=== PATIENT | male | born 1975 | race Caucasian/White ===

== ENCOUNTER → 2018-11-02 | Outpatient (CLI) | payer OTHER ==
--- NOTE | 2018-11-03 19:52 | MR ---
EXAMINATION TYPE: MR shoulder LT wo con DATE OF EXAM: 11/02/2018 COMPARISON: None HISTORY: Lt shoulder pain after working out TECHNIQUE: Multiplanar, multisequence imaging of the shoulder is performed without contrast. FINDINGS: The supraspinatus tendon appears intact. The biceps tendon appears intact. The subscapularis tendon i s intact. The glenoid viktoria appear normal. I see no fracture nor dislocation. There is minor spurring at the AC joint and minimal subacromial impingement. I see no focal bone destruction. There is a sma ll shoulder joint effusion.. IMPRESSION: No evidence of rotator cuff tear. Small shoulder joint effusion suggestive of mild synovitis. Minimal subacromial impingement.
== END | disposition home or self-care (01) ==
LOC: RADMRIMAIN 18:47
PROVIDERS: ATTEND Family Medicine
DX: M25.412 Effusion, left shoulder (principal)

== ENCOUNTER 2020-08-22 11:56 | Emergency (ER) | payer BC ==
[2020-08-22 12:13] VITALS: BP 130/81; PULSE 60; RESP 20; TEMP 98.1
--- NOTE | 2020-08-22 12:39 | ED ---
Upper Extremity HPI - General Chief Complaint: Extremity Injury, Upper Stated Complaint: Finger injury Time Seen by Provider: 08/22/20 12:16 Source: patient, RN notes reviewed Mode of arrival: ambulatory Limitations: no limitations - History of Present Illness Initial Comments: 44-year-old male presents emergency Department with chief complaint of right hand fifth digit finger injury. Patient states that he was loading wood into his tractor bucket yesterday. Patient states he smashes fifth digit in between a piece of wood in the bucket. Patient states that the swelling has improved though still has extensive swelling and bruising. Patient is right-hand dominant patient offers no other complaints no laceration. - Related Data Allergies Allergy/AdvReac Type Severity Reaction Status Date / Time amoxicillin Allergy Anaphylaxis Verified 08/22/20 12:13 clarithromycin Allergy Rash/Hives Verified 08/22/20 12:13 Sulfa (Sulfonamide Allergy Rash/Hives Verified 08/22/20 12:13 Antibiotics) Review of Systems ROS Statement: Those systems with pertinent positive or pertinent negative responses have been documented in the HPI. ROS Other: All systems not noted in ROS Statement are negative. Past Medical History Past Medical History: No Reported History History of Any Multi-Drug Resistant Organisms: None Reported Past Surgical History: Tonsillectomy Past Psychological History: No Psychological Hx Reported Smoking Status: Never smoker Past Alcohol Use History: Occasional Past Drug Use History: None Reported General Exam Limitations: no limitations General appearance: alert, in no apparent distress Head exam: Present: atraumatic, normocephalic, normal inspection Eye exam: Present: normal appearance, PERRL, EOMI. Absent: scleral icterus, conjunctival injection, periorbital swelling Respiratory exam: Present: normal lung sounds bilaterally. Absent: respiratory distress, wheezes, rales, rhonchi, stridor Cardiovascular Exam: Present: regular rate, normal rhythm, normal heart sounds. Absent: systolic murmur, diastolic murmur, rubs, gallop, clicks Extremities exam: Present: other (Right hand fifth digit there is ecchymosis swelling to the distal tip of the finger there is a small subungual hematoma patient's full range of motion neurovascular intact) Course Vital Signs 08/22/20 12:11 Temperature 98.1 F Pulse Rate 60 Respiratory 20 Rate Blood Pressure 130/81 O2 Sat by Pulse 98 Oximetry Medical Decision Making - Medical Decision Making X-ray was reviewed shows subtle oblique fracture finger. Patient described finger splint patient be discharged in stable condition. Disposition Clinical Impression: Closed fracture of finger of right hand Disposition: HOME SELF-CARE Condition: Stable Instructions (If sedation given, give patient instructions): Finger Fracture (ED) Additional Instructions: Please return to the Emergency Department if symptoms worsen or any other concerns. Is patient prescribed a controlled substance at d/c from ED?: No Referrals: Megan Horn DO [Primary Care Provider] - 1-2 days Time of Disposition: 12:51
--- NOTE | 2020-08-22 12:42 | XR ---
EXAMINATION TYPE: XR finger RT DATE OF EXAM: 08/22/2020 COMPARISON: NONE HISTORY: 44-year-old male pain after crushing injury TECHNIQUE: 3 views coned down right fifth finger FINDINGS: There is subtle nondisplaced transverse to oblique fracture of the fifth distal phalangeal tuft. No s ubluxation or dislocation. IMPRESSION: Subtle nondisplaced transverse to oblique fracture of the fifth distal phalangeal tuft.
== END 2020-08-22 13:17 | disposition home or self-care (01) ==
LOC: EC 11:56
DX: S62.606A Fracture of unspecified phalanx of right little finger, initial encounter for closed fracture (principal); Z88.0 Allergy status to penicillin; Z88.1 Allergy status to other antibiotic agents; Z88.2 Allergy status to sulfonamides; W23.0XXA Caught, crushed, jammed, or pinched between moving objects, initial encounter
CPT/HCPCS: 99283

== ENCOUNTER → 2023-06-08 | Outpatient (CLI) | payer BC ==
--- NOTE | 2023-06-08 15:04 | CA ---
Stress Echo Report Stevie Corey Age: 47 Gender: M : 1975 Exam Date: 06/08/2023 10:30 Exam Location: [facility] Stress Ht (in): 72 Wt (lb): 265 Ordering Physician: Megan Jaeger DO Referring Physician: MEGAN JAEGER,, Spool Tender: Josemanuel Buck Technologist Procedure CPT: Indication: R00.2 palpitations ICD-9 Codes: Rhythm: Patient History: Cardiac Medications: Medications in past 24 hours: Contrast: N/A Stress Results Protocol: Sam Total dose(mL): Exercise Duration (min:sec): 9:[address] Depression (mm): Angina Score: Nance Score: METS: 10.5 Resting HR: 70 Resting BP: 114 / 58 Peak HR: 162 Peak BP: 220 / 74 Max Predicted HR: 171 95 % Max Predicted HR Target HR: 145 Double Product: [id number] Stress Summary: BP Response: Reason for Termination: Reached target heart rate or work-load Cardiac Symptoms: NO SYMPTOMS ECG Analysis Resting ECG: Stress ECG: Arrhythmia: Echo Analysis Resting Echo: Peak Echo Analysis: MEASUREMENTS (Male/Female) Normal Values CONCLUSIONS Patient underwent exercise stress echo with a Sam protocol treadmill stress test. Patient exercised into Stage 3 for a total of 9 minutes and 12 seconds reaching a total of 10.5 METS. Patient's maximum heart rate was 162 which represented 94% age- predicted maximum heart rate. Stress EKG portion: At baseline patient's EKG showed normal sinus rhythm, normal axis, no significant ST or T wave abnormalities. At peak exercise, EKG showed mild 0.[address] depressions in the inferior lateral leads. Stress echo portion: 2-D echocardiogram was performed in the parasternal long, personal short, apical 2 and apical four-chamber views at rest, peak exercise and in recovery. At baseline, echocardiogram showed left ventricular ejection fraction 55% without wall motion abnormalities. With peak exercise, echocardiogram shows improvement in left ventricular ejection fraction, increase contractility, decrease in left ventricular end systolic dimension without wall motion abnormalities consistent with a normal response to exercise. Conclusions: 1. Normal EKG and echo response to exercise without evidence of inducible ischemia. 2. Good exercise capacity. Dr. Abdelrahman Centeno DO (Electronically Signed) Final Date: 08 June 2023 15:03
== END | disposition home or self-care (01) ==
LOC: RADNMMAIN 09:52
PROVIDERS: ATTEND Family Medicine
DX: R00.2 Palpitations (principal); R00.0 Tachycardia, unspecified
CPT/HCPCS: 93351

== ENCOUNTER 2024-09-23 18:48 | Emergency (ER) | payer OTHER, BC ==
--- NOTE | 2024-09-23 19:14 | ED ---
General Adult HPI - General Source: patient, RN notes reviewed <Leslie Sanford - Last Filed: 09/23/24 19:12> - General Source: patient, RN notes reviewed, old records reviewed Mode of arrival: ambulatory Limitations: no limitations - History of Present Illness -: hour(s) Location: head Radiation: non-radiation Severity scale (1-10): 6 Consistency: constant Improves with: none Worsens with: none Associated Symptoms: nausea/vomiting, weakness Treatments Prior to Arrival: none <Jorge Linton - Last Filed: 09/23/24 21:21> - General Stated complaint: Fall/Head Time Seen by Provider: 09/23/24 19:00 - History of Present Illness Initial comments: Quick [id number] male presenting to the emergency department for complaint of a fall and subsequent posterior head injury that occurred at 2030. Patient states that he slipped on ice and hit the back of his head on a brick garage. He denies loss of consciousness however states that he experienced severe dizziness, double vision and nausea. Currently is endorsing dizziness and nausea. Denies blood thinner use. (Leslie Sanford) This is a 48-year-old male to the ER for evaluation of fall fall with head injury. Dizziness lightheaded with double vision and nausea. (Jorge Linton) - Related Data Allergies Allergy/AdvReac Type Severity Reaction Status Date / Time amoxicillin Allergy Anaphylaxis Verified 09/23/24 19:34 clarithromycin Allergy Rash/Hives Verified 09/23/24 19:34 Sulfa (Sulfonamide Allergy Rash/Hives Verified 09/23/24 19:34 Antibiotics) Review of Systems ROS Other: All systems not noted in ROS Statement are negative. <Leslie Sanford - Last Filed: 09/23/24 19:12> ROS Other: All systems not noted in ROS Statement are negative. <Jorge Linton - Last Filed: 09/23/24 21:21> ROS Statement: Those systems with pertinent positive or pertinent negative responses have been documented in the HPI. Past Medical History Past Medical History: No Reported History History of Any Multi-Drug Resistant Organisms: None Reported Past Surgical History: Tonsillectomy Past Psychological History: No Psychological Hx Reported Smoking Status: Never smoker Past Alcohol Use History: Occasional Past Drug Use History: None Reported <Eli Sanfordoe - Last Filed: 09/23/24 19:12> General Exam <StibibianarEliLeslie - Last Filed: 09/23/24 19:12> General appearance: alert, in no apparent distress Head exam: Present: atraumatic, normocephalic, normal inspection Eye exam: Present: normal appearance, PERRL, EOMI. Absent: scleral icterus, conjunctival injection, periorbital swelling ENT exam: Present: normal exam, mucous membranes moist Neck exam: Present: normal inspection. Absent: tenderness, meningismus, lymphadenopathy Respiratory exam: Present: normal lung sounds bilaterally. Absent: respiratory distress, wheezes, rales, rhonchi, stridor Cardiovascular Exam: Present: regular rate, normal rhythm, normal heart sounds. Absent: systolic murmur, diastolic murmur, rubs, gallop, clicks GI/Abdominal exam: Present: soft, normal bowel sounds. Absent: distended, tenderness, guarding, rebound, rigid Extremities exam: Present: normal inspection, full ROM, normal capillary refill. Absent: tenderness, pedal edema, joint swelling, calf tenderness Back exam: Present: normal inspection Neurological exam: Present: alert, oriented X3, CN II-XII intact Psychiatric exam: Present: normal affect, normal mood Skin exam: Present: warm, dry, intact, normal color. Absent: rash <Jorge Linton - Last Filed: 09/23/24 21:21> - General Exam Comments Initial Comments: Visual Physical Exam Vital signs reviewed General: Well-appearing, nontoxic, no acute distress. Head: Normocephalic, atraumatic Eyes: PERRLA, EOMI ENT: Airway patent Chest: Nonlabored breathing Skin: No visual rash, normal skin tone Neuro: Alert and oriented 3 Musculoskeletal: No gross abnormalities (Stieler,Leslie) Course <Jorge Linton - Last Filed: 09/23/24 21:21> Vital Signs 09/23/24 19:34 Temperature 98.0 F Pulse Rate 65 Respiratory 18 Rate Blood Pressure 158/92 O2 Sat by Pulse 97 Oximetry - Reevaluation(s) Reevaluation #1: 09/23/24 21:19 Medical records reviewed (Jorge Linton) Reevaluation #2: 09/23/24 21:19 Patient symptoms unchanged (Jorge Linton) Reevaluation #3: 09/23/24 21:19 Patient informed of results and questions answered (Jorge Linton) Reevaluation #4: Was pt. sent in by a medical professional or institution (DENICE Zhang, RETAIL ACCOUNT SPECIALIST, urgent care, hospital, or long-term...) When possible be specific @ -no Did you speak to anyone other than the patient for history (EMS, parent, family, police, friend...)? What history was obtained from this source @ -no Did you review nursing and triage notes (agree or disagree)? Why? @ -agree Are old charts reviewed (outside hosp., previous admission, EMS record, old EKG, old radiological studies, urgent care reports/EKG's, long-term records)? Report findings @ -yes Differential Diagnosis (chest pain, altered mental status, abdominal pain women, abdominal pain men, vaginal bleeding, weakness, fever, dyspnea, syncope, headache, dizziness, GI bleed, back pain, seizure, CVA, palpatations, mental health, musculoskeletal)? @ -prior EKG interpreted by me (3pts min.). @ -yes X-rays interpreted by me (1pt min.). @ -yes negative for acute disease CT interpreted by me (1pt min.). @ -no U/S interpreted by me (1pt. min.). @ -no What testing was considered but not performed or refused? (CT, X-rays, U/S, labs)? Why? @ -none What meds were considered but not given or refused? Why? @ -none Did you discuss the management of the patient with other professionals (professionals i.e. DENICE Zhang, RETAIL ACCOUNT SPECIALIST, lab, RT, psych nurse, child welfare social worker, research instructor, teacher, customer service security officer, residential case manager)? Give summary @ -no Was smoking cessation discussed for >3mins.? @ -no Was critical care preformed (if so, how long)? @ -no Were there social determinants of health that impacted care today? How? (Homelessness, low income, unemployed, alcoholism, drug addiction, transportation, low edu. Level, literacy, decrease access to med. care, [place] [facility], rehab)? @ -none Was there de-escalation of care discussed even if they declined (Discuss DNR or withdrawal of care, Hospice)? DNR status @ -no What co-morbidities impacted this encounter? (DM, HTN, Smoking, COPD, CAD, Cance r, CVA, ARF, Chemo, Hep., AIDS, mental health diagnosis, sleep apnea, morbid obesity)? @ -none Was patient admitted / discharged? Hospital course, mention meds given and route, prescriptions, significant lab abnormalities, going to OR and other pertinent info. @ - Undiagnosed new problem with uncertain prognosis? @ -no Drug Therapy requiring intensive monitoring for toxicity (Heparin, Nitro, I nsulin, Cardizem)? @ -no Were any procedures done? @ -no Diagnosis/symptom? @ - Acute, or Chronic, or Acute on Chronic? @ -Acute Uncomplicated (without systemic symptoms) or Complicated (systemic symptoms)? @ -Complicated Side effects of treatment? @ -no Exacerbation, Progression, or Severe Exacerbation? @ -exacerbation Poses a threat to life or bodily function? How? (Chest pain, [place], [place], pneumonia, PE, COPD, DKA, ARF, appy, cholecystitis, CVA, Diverticulitis, Homicidal, Suicidal, threat to staff... and all critical care pts) @ -yes (Jorge Linton) Reevaluation #5: Differential Headache: Migraine, tension, cluster, carbon monoxide, central venous thrombosis, pension karma temporal arteritis, acute closure glaucoma, intercranial hemorrhage, mastoiditis, sinusitis, head injury, this is not meant to be an all-inclusive list. (Jorge Linton) Medical Decision Making <Leslie Sanford - Last Filed: 09/23/24 19:12> - Radiology Data Radiology results: report reviewed (CT brain C-spine negative for acute disease), image reviewed <Jorge Linton - Last Filed: 09/23/24 21:21> - Medical Decision Making I completed the quick note portion of this chart signed Leslie Sanford PA-C (Leslie Sanford) 48 male to ER for evaluation patient presents today for evaluation regards to fall with head injury. Likely concussion of symptoms. Patient has no signi ficant traumatic injury from fall and can be discharged home (Jorge Linton) Disposition <Leslie Sanford - Last Filed: 09/23/24 19:12> Is patient prescribed a controlled substance at d/c from ED?: No Time of Disposition: 21:00 <Jorge Linton - Last Filed: 09/23/24 21:21> Clinical Impression: Fall, Head injury Disposition: HOME SELF-CARE Condition: Good Instructions (If sedation given, give patient instructions): Head Injury (ED) Referrals: Megan Horn DO [Primary Care Provider] - 1-2 days
[2024-09-23 19:38] VITALS: RESP 18
--- NOTE | 2024-09-23 20:31 | CT ---
EXAMINATION TYPE: CT brain cspine wo con CT DLP: 1721.7 mGycm, Automated exposure control for dose reduction was used. DATE OF EXAM: 09/23/2024 7:50 PM COMPARISON: None. CLINICAL INDICATION:Male, 48 years old with history of fall, hit head, confusion/dizzy; Fall, hit hea d, confusion/dizzy. TECHNIQUE: Brain: Multiple axial CT images of the brain were obtained without IV contrast. Cspine: Axial CT images from the skull base to the inferior aspect of T2 we obtained without intraven ous contrast. Coronal and sagittal reformatted images were also reviewed. . FINDINGS: Brain: Extra-axial spaces: No abnormal extra-axial fluid collections. Ventricular system: Within normal limits Cerebral parenchyma: No acute intraparenchymal hemorrhage or mass effect. The webber-white junction is well differentiated. Cerebellum: Unremarkable. Mass effect: No evidence of midline shift. Intracranial vasculature: unremarkable Soft tissues: Subtle attenuation along the frontal soft tissues. Calvarium/osseous structures: No acute depressed skull fracture. Paranasal sinuses and mastoid air cells: Clear. Visualized orbits: Orbital contents are intact. Cervical spine: Fracture: No acute fractures. Osseous structures: Mild multilevel degenerative changes present. Vertebral alignment: Within normal limits. Spinal canal/Neural Foramina: Multilevel disc osteophyte complexes are seen with right-sided facet ar thropathy most pronounced at C3-C4 and C5-C6 where there is mild spinal canal stenosis and mild right neural foraminal stenosis . Neck soft tissues: Prevertebral soft tissues are within normal limits. Other: The airway is patent. The lung apices are clear. IMPRESSION: 1. No acute intracranial process. 2. Small area of attenuation along the frontal soft tissues may relate to a laceration. Correlate wit h exam. 3. No evidence of acute cervical spine fracture. 4. Mild multilevel degenerative disc disease. [facility], , 09/23/2024 8:29 PM
[2024-09-23] MEDS: IBUPROFEN 600 MG STARTER PACK 4 TAB BTL PO STA (21:32)
[2024-09-23] MEDS: ONDANSETRON 4 MG ODT STARTER PACK 2 TAB BTL PO STA (21:32)
[2024-09-23 21:36] VITALS: BP 164/96; PULSE 64; TEMP 97.5
== END 2024-09-23 21:36 | disposition home or self-care (01) ==
LOC: EC 18:48
DX: S09.90XA Unspecified injury of head, initial encounter (principal); Z88.1 Allergy status to other antibiotic agents; Z88.2 Allergy status to sulfonamides; Z88.8 Allergy status to other drugs, medicaments and biological substances; W00.0XXA Fall on same level due to ice and snow, initial encounter
CPT/HCPCS: 72125; 70450; 99284; S0119